=== PATIENT | male | born 1940 | race Caucasian/White ===

== ENCOUNTER → 2023-12-16 07:23 | Outpatient (REF) | payer MEDICARE, OTHER, SELFPAY | LOC: RAD 07:23 | PROVIDERS: ATTENDING PHYSICIAN Nurse Practitioner; FAMILY PHYSICIAN Family Medicine | DX: I48.19 Other persistent atrial fibrillation (principal); Z91.81 History of falling | CPT/HCPCS: 70450 ==

== ENCOUNTER → 2024-03-11 12:18 | Outpatient (REF) | payer MEDICARE, OTHER, SELFPAY ==
[2024-03-11 14:16] LABS: Albumin 4.4 g/dl (3.5-5.0); Blood Urea Nitrogen 16 mg/dl (9-20); Calcium 9.5 mg/dl (8.4-10.2); Carbon Dioxide 24 mmol/L (22-30); Chloride 102 mmol/L (98-107); Glucose 91 mg/dl (70-99); Phosphorus 3.7 mg/dl (2.5-4.5); Potassium 4.2 mmol/L (3.5-5.1); Sodium 137 mmol/L (135-145); eGFR > 60.00
== END ==
LOC: REG 12:18
PROVIDERS: ATTENDING PHYSICIAN Internal Medicine Cardiovascular Disease; FAMILY PHYSICIAN Family Medicine
DX: I48.0 Paroxysmal atrial fibrillation (principal); Z79.01 Long term (current) use of anticoagulants; Z79.899 Other long term (current) drug therapy
CPT/HCPCS: 36415; 80069

== ENCOUNTER 2024-11-20 13:09 | Emergency (ER) | payer MEDICARE, OTHER, SELFPAY ==
[2024-11-20 13:12] VITALS: BP 164/101
--- NOTE | 2024-11-20 15:09 | ED.MUSCINJ ---
HPI-Injury
General
Chief Complaint: Musculo-Skeletal Complaint
Source: patient and family
Exam Limitations: none
Time Seen by Provider: 11/20/24 14:08
Nursing documentation reviewed up to this point in time: agreed with
History of Present Illness-Injury
Is this injury a work related problem?: No
Is pt an associate of [facility]/[place]?: No
Initial Injury comments:
84-year-old male Eliquis prior stroke not diabetic left elbow pain mild trauma no fever chills mild warmth banged it a few days ago,
Past History
Past History
ED Past Medical History: Arrthythmia (Atrial fib), CVA and Other (Tinitis, )
ED Past Surgical History: Cardiac (Mitral valve replaced) and Other (hernia repair, cataracts, )
Social History
Tobacco: Former smoker
Alcohol: Occasional (Wine 2 glasses)
Drug: None
Personal:
Living: alone
Employment: Employed
Review of Systems
Review of Systems
All Other Systems: Not applicable
Constitutional: Denies fever or fatigue
Musculoskeletal: Reports joint pain
Phy Exam
Physical Exam
Physical Exam:
Physical Exam
General: no apparent distress, not acutely ill
Neck: No jaundice
Lungs: no acute respiratory distress.
Neuro: alert and oriented. no focal neurological deficits
Skin: no rash
Psychiatric: well kept. interactive and cooperative
Extremities: Mild redness and warmth of the left olecranon bursa
Injury Course
Orders/Labs/Results
Orders:
Orders
11/20/24 13:16
Elbow, 3 view, Left [CR Elbow - Left Min 3 Views ] Urgent
Comment:
Reason For Exam: swelling
11/20/24 15:01
Acetaminophen [Tylenol] 650 mg PO NOW STA
Doxycycline [Vibramycin] 100 mg PO NOW STA
11/20/24 15:02
Sling Left-Treatment ONCE
MDM/Problems Addressed
Differential Diagnosis Includes:
Olecranon bursitis cellulitis fracture doubt septic joint
MDM/Problems Addressed:
Swollen elbow
Chronic conditions affecting care:
AF anticoagulated prior stroke
Acute Exacerbation and/or Progression of Chronic Illness:
AF anticoagulated prior stroke
*Radiology
Radiology exam reviewed: radiology read reviewed
*Pulse Oximetry
Patient hypoxic: no
*Critical Care Note
Total Time (30-74mins, 75-104mins- exclusive of procedures): Not Applicable
Update Note
Update Note:
Patient nontoxic mildly swollen will start on antibiotics consideration for aspiration of those anticoagulated encouraged to not miss any doses of his anticoagulation had a prior stroke
ED Attending Note
-
Portions of this chart may have been created with voice recognition software.� Occasional wrong word or��sound alike� substitutions may have occurred due to the inherent limitations of voice recognition software.
Discharge Plan
Departure
Patient Disposition: Home (Routine Discharge)
Date of Disposition: 11/20/24
Time of Disposition: 15:02
Patient with high blood pressure during this ER visit?: No
Condition: Good
Discharge Problem:
Bursitis, olecranon
Instructions: Using Cold for Pain, Bursitis ED
Prescriptions:
New
doxycycline hyclate 100 mg capsule
100 mg PO BID Qty: 20 0RF
No Action
multivitamin Tablet
1 tab PO DAILY
cholecalciferol (vitamin D3) [Vitamin D3] 25 mcg (1,000 unit) Tablet
25 mcg PO DAILY
atorvastatin 20 mg Tablet
20 mg PO QPM Qty: 30 0RF
apple cider vinegar 300 mg Tablet
300 mg PO DAILY
acetaminophen 325 mg Tablet
650 mg PO Q4HPRN PRN (Reason: mild pain /fever >100.4 F) Qty: 1 0RF
Eliquis 5 mg Tablet
5 mg PO BID
dofetilide 250 mcg Capsule
250 mcg PO Q12H Qty: 60 3RF
Referrals:
Guillaume Fish MD [Family Provider] -
Abdon Langley MD [Active] - Follow up in 2-3 days
Activity Restrictions/Additional Instructions:
Use ice, Tylenol for pain, doxycycline twice a day return to the ER if worsening symptoms
Interventions
Interventions:
*Risk Screen - Suicide Last Done: 11/20/24 13:12
*Neglect/Abuse Screening Last Done: 11/20/24 13:12
Discharge Date and Time
Print Language: ROMANIAN
[2024-11-20] MEDS: TYLENOL 650 MG PO (15:22)
[2024-11-20] MEDS: VIBRAMYCIN 100 MG PO (15:22)
== END 2024-11-20 15:40 | disposition home or self-care (01) ==
LOC: EMR 13:09
PROVIDERS: EMERGENCY PHYSICIAN Emergency Medicine; FAMILY PHYSICIAN Family Medicine
DX: M70.22 Olecranon bursitis, left elbow (principal); M25.522 Pain in left elbow; X58.XXXA Exposure to other specified factors, initial encounter; I48.91 Unspecified atrial fibrillation; R01.1 Cardiac murmur, unspecified; Z79.01 Long term (current) use of anticoagulants; Z95.2 Presence of prosthetic heart valve; Z87.891 Personal history of nicotine dependence; Z86.73 Personal history of transient ischemic attack (TIA), and cerebral infarction without residual deficits
CPT/HCPCS: 99283; 73080

== ENCOUNTER → 2024-12-07 11:27 | Outpatient (REF) | payer MEDICARE, OTHER, SELFPAY ==
[2024-12-07 12:20] LABS: Hemoglobin 15.1 g/dL (13.0-18.0); Mean Corp Hgb Conc. 34.3 g/dL (33.0-37.0); Mean Corpuscular Hgb 32.2 pg (27.0-31.0); Mean Corpuscular Volume 93.8 fL (80.0-94.0); Mean Platelet Volume 10.3 fL (7.4-10.4); Platelet Count 166 10^3/uL (130-400); Red Blood Cell Count 4.69 10^6/uL (4.70-6.10); Red Cell Dist. Width 12.5 % (11.5-14.5); White Blood Cell Count 8.8 10^3/uL (4.8-10.8)
== END ==
LOC: REG 11:27
PROVIDERS: ATTENDING PHYSICIAN Internal Medicine Cardiovascular Disease
DX: I48.0 Paroxysmal atrial fibrillation (principal); Z79.01 Long term (current) use of anticoagulants
CPT/HCPCS: 36415; 85027

== ENCOUNTER → 2024-12-16 12:48 | Outpatient (REF) | payer MEDICARE, OTHER, SELFPAY | LOC: RCS 12:48 | PROVIDERS: ATTENDING PHYSICIAN Internal Medicine Cardiovascular Disease; FAMILY PHYSICIAN Nurse Practitioner Family | DX: I48.0 Paroxysmal atrial fibrillation (principal) | CPT/HCPCS: 93306 ==

== ENCOUNTER → 2025-02-03 09:55 | Outpatient (REF) | payer MEDICARE, OTHER, SELFPAY ==
[2025-02-03 11:14] LABS: % Basophils 0.9 % (0-2); % Eosinophils 2.1 % (0-6); % Immature Granulocytes 0.4 % (0-0.5); % Monocytes 7.3 % (1.7-9.3); % Neutrophils 62.3 % (42.2-75.2); Absolute Basophils 0.1 10^3/uL (0-0.2); Absolute Eosinophils 0.1 10^3/uL (0-0.7); Absolute Lymphocytes 1.5 10^3/uL (1.2-3.4); Absolute Monocytes 0.4 10^3/uL (0.1-0.6); Absolute Neutrophils 3.5 10^3/uL (1.4-6.5); Hematocrit 43.6 % (39.0-52.0); Hemoglobin 14.7 g/dL (13.0-18.0); Mean Corp Hgb Conc. 33.7 g/dL (33.0-37.0); Mean Corpuscular Hgb 32.2 pg (27.0-31.0); Mean Corpuscular Volume 95.6 fL (80.0-94.0); Mean Platelet Volume 10.4 fL (7.4-10.4); Nucleated Red Blood Cells % 0 % (-); Platelet Count 156 10^3/uL (130-400); Red Blood Cell Count 4.56 10^6/uL (4.70-6.10); Red Cell Dist. Width 13.7 % (11.5-14.5); White Blood Cell Count 5.6 10^3/uL (4.8-10.8)
[2025-02-03 11:49] LABS: ALT (SGPT) 27 U/L (0-50); AST (SGOT) 35 U/L (17-59); Albumin 4.3 g/dl (3.5-5.0); Alkaline Phosphatase 99 U/L (38-126); Blood Urea Nitrogen 13 mg/dl (9-20); Calcium 9.5 mg/dl (8.4-10.2); Carbon Dioxide 31 mmol/L (22-30); Chloride 102 mmol/L (98-107); Glucose 91 mg/dl (70-99); HDL Cholesterol 66 mg/dl; LDL Cholesterol, Calculated 67 mg/dl; Potassium 4.6 mmol/L (3.5-5.1); Sodium 138 mmol/L (135-145); Total Cholesterol 153 mg/dl (50-199); Total Protein 7.1 g/dl (6.3-8.2); Triglyceride 102 mg/dl (10-149); Very Low Density Lipoprotein 20 mg/dl (0-30); eGFR > 60.00
== END ==
LOC: REG 09:55
PROVIDERS: ATTENDING PHYSICIAN Internal Medicine
DX: Z00.00 Encounter for general adult medical examination without abnormal findings (principal); I50.32 Chronic diastolic (congestive) heart failure
CPT/HCPCS: 36415; 80053; 80061; 85025

== ENCOUNTER 2025-10-21 08:01 | Emergency (ER) | payer MEDICARE, OTHER, SELFPAY ==
[2025-10-21 08:03] VITALS: BP 145/101
--- NOTE | 2025-10-21 08:37 | ED.GENMED ---
History of Present Illness
<Ayanna Zhou MD, Resident - Last Filed: 10/21/25 10:43>
General
Chief Complaint: Headache
Source: patient
Time Seen by Provider: 10/21/25 08:17
History of Present Illness
History of Present Illness:
Patient is an 85-year-old male with past medical history significant for hyperlipidemia, unspecified type of atrial fibrillation on chronic anticoagulation with Eliquis, left bundle branch block, HFpEF, prior stroke, prior retroperitoneal hemorrhage
on Xarelto, mitral valve replacement who is here for evaluation of headache on right side of the forehead and moravian area radiating up to the vertex and a feeling of pain behind the right eye as well.
He noticed this headache for 3 days, achy in nature, no associated blurring of vision, decrease in vision, weakness of any side, no aggravating or relieving factors.
He does have some red blotches on forehead but they have been there for a while and they come and go.
Here for evaluation for a stroke given the past medical history and current anticoagulation with Eliquis. Denies any fever, chills, abdominal pain, chest pain, shortness of breath, palpitations or any other issues at this time.
Past History
<Ayanna Zhou MD, Resident - Last Filed: 10/21/25 10:43>
Past History
ED Past Medical History: Arrthythmia (Atrial fib), CVA and Other (Tinitis, )
ED Past Surgical History: Cardiac (Mitral valve replaced) and Other (hernia repair, cataracts, )
Social History
Tobacco: Former smoker
Alcohol: Occasional (Wine 2 glasses)
Drug: None
Personal:
Living: alone
Employment: Employed
Review of Systems
<Ayanna Zhou MD, Resident - Last Filed: 10/21/25 10:43>
Review of Systems
All Other Systems: ROS reviewed and negative except as documented in HPI and ROS
Phy Exam
<Ayanna Zhou MD, Resident - Last Filed: 10/21/25 10:43>
General Physical Exam
General Presentation: well appearing and no apparent distress
Cardiovascular Exam
Cardiovascular Exam: no gallop, no murmur, normal peripheral pulses and irregularly irregular
Pulmonary Exam
Pulmonary Exam: lungs clear and no respiratory distress
Gastrointestinal Exam
Gastrointestinal Exam: normal bowel sounds, non tender and soft
Neurological Exam
Neurological Exam: alert, oriented x3, CN II-XII intact, no motor deficits, no sensory deficits, speech normal and cerebellum intact
Musculoskeletal Exam
Musculoskeletal Exam: full ROM
Course
<Ayanna Zhou MD, Resident - Last Filed: 10/21/25 10:43>
Orders/Labs/Results
Orders:
Orders
10/21/25 08:34
CT Head W/o Iv Contrast Urgent
Comment:
Reason For Exam: Headache,Hx of strokes,on eliquis,a fib
10/21/25 08:35
Electrocardiogram (*1) Urgent
Reason for Study: Atrial Fibrillation
EKG- Treatment ONCE
10/21/25 08:37
Acetaminophen [Tylenol] 1,000 mg PO NOW ONE
10/21/25 08:50
CBC/With Diff [Complete Blood Count/With Diff] Urgent
CMP [Comprehensive Metabolic Panel] Urgent
CRP [C-Reactive Protein] Urgent
ESR [Erythrocyte Sed Rate] Urgent
PT/INR [Prothrombin Time] Urgent
Abnormal Lab Results
10/21/25
08:50
RBC 4.64 L 10^6/uL
(4.70-6.10)
MCH 31.5 H pg
(27.0-31.0)
Lymphocytes % 18.7 L %
(20.5-51.1)
PT 14.7 H Sec
(11.4-14.6)
12/12/25 08:50
10/21/25 08:50
Vital Signs
Initial and Last Documented VS:
Initial Vital Signs
Temp Pulse Resp BP Pulse Ox
97.8 F 96 16 145/101 98
10/21/25 08:03 10/21/25 08:03 10/21/25 08:03 10/21/25 08:03 10/21/25 08:03
Last Documented Vital Signs
Temp Pulse Resp BP Pulse Ox
97.8 F 65 18 148/84 100
10/21/25 08:03 10/21/25 10:31 10/21/25 10:31 10/21/25 10:31 10/21/25 10:31
<Beto Carmona, DO - Last Filed: 10/21/25 10:43>
Orders/Labs/Results
Orders:
Orders
10/21/25 08:34
CT Head W/o Iv Contrast Urgent
Comment:
Reason For Exam: Headache,Hx of strokes,on eliquis,a fib
10/21/25 08:35
Electrocardiogram (*1) Urgent
Reason for Study: Atrial Fibrillation
EKG- Treatment ONCE
10/21/25 08:37
Acetaminophen [Tylenol] 1,000 mg PO NOW ONE
10/21/25 08:50
CBC/With Diff [Complete Blood Count/With Diff] Urgent
CMP [Comprehensive Metabolic Panel] Urgent
CRP [C-Reactive Protein] Urgent
ESR [Erythrocyte Sed Rate] Urgent
PT/INR [Prothrombin Time] Urgent
Abnormal Lab Results
10/21/25
08:50
RBC 4.64 L 10^6/uL
(4.70-6.10)
MCH 31.5 H pg
(27.0-31.0)
Lymphocytes % 18.7 L %
(20.5-51.1)
PT 14.7 H Sec
(11.4-14.6)
10/21/25 08:50
10/21/25 08:50
Vital Signs
Initial and Last Documented VS:
Initial Vital Signs
Temp Pulse Resp BP Pulse Ox
97.8 F 96 16 145/101 98
10/21/25 08:03 10/21/25 08:03 10/21/25 08:03 10/21/25 08:03 10/21/25 08:03
Last Documented Vital Signs
Temp Pulse Resp BP Pulse Ox
97.8 F 65 18 148/84 100
10/21/25 08:03 10/21/25 10:31 10/21/25 10:31 10/21/25 10:31 10/21/25 10:31
<Ayanna Zhou MD, Resident - Last Filed: 10/21/25 10:43>
MDM/Problems Addressed
Differential Diagnosis Includes:
Temporal giant cell arteritis
Shingles
Stroke
Migraines
Acute glaucoma
MDM/Problems Addressed:
Patient's clinical evaluation, less concerning for acute glaucoma, normal extraocular movements without any pain, sclera color normal, no redness, tearing or congestion of eye.
Head CT done, no intracranial bleed
Patient does not have any history of migraines and his pain improved with Tylenol.
CRP level normal
Referral to dermatology provided to follow-up for the rash on forehead, less concerning for shingles as it is not a single dermatomal distribution and has been there for years
Advised the patient to return to the ER for blurred vision, weakness, sensory deficits or any concerning symptoms
Plan to discharge the patient with follow-up with PCP and dermatology
<Ayanna Zhou MD, Resident - Last Filed: 10/21/25 10:43>
*Pulse Oximetry
SaO2: 98
Oxygen Mode of Delivery: Room air
Patient hypoxic: no
*Critical Care Note
Total Time (30-74mins, 75-104mins- exclusive of procedures): Not Applicable
<Beto Carmona DO - Last Filed: 10/21/25 10:43>
Update Note
Update Note:
10:30 AM patient with a reddish rash on his bilateral forehead states he has had this for years, not vesicular, will give him the number for dermatology nonurgently, fairly low clinical suspicion this would be zoster bilaterally chronic
ED Attending Note
<Ayanna Zhou MD, Resident - Last Filed: 10/21/25 10:43>
-
Portions of this chart may have been created with voice recognition software.� Occasional wrong word or��sound alike� substitutions may have occurred due to the inherent limitations of voice recognition software.
<Beto Carmona DO - Last Filed: 10/21/25 10:43>
ED Attending Note
Patient seen and examined by attending physician: Yes
I performed a history and physical exam of patient and discussed management with resident, I reviewed resident's note and agree with documented findings and plan of care.: Yes
ED Attending Note:
Seen with resident examined independently nontoxic elderly male mild frontal headache, history of stroke, pupils round reactive no photophobia
Discharge Plan
Departure
Patient Disposition: Home (Routine Discharge)
Date of Disposition: 10/21/25
Time of Disposition: 10:35
Patient with high blood pressure during this ER visit?: No
Discharge Problem:
Headache
Instructions: Headache, Adult (DC)
Prescriptions:
No Action
multivitamin Tablet
1 tab PO DAILY
cholecalciferol (vitamin D3) [Vitamin D3] 25 mcg (1,000 unit) Tablet
25 mcg PO DAILY
atorvastatin 20 mg Tablet
20 mg PO QPM Qty: 30 0RF
apple cider vinegar 300 mg Tablet
300 mg PO DAILY
acetaminophen 325 mg Tablet
650 mg PO Q4HPRN PRN (Reason: mild pain /fever >100.4 F) Qty: 1 0RF
Eliquis 5 mg Tablet
5 mg PO BID
dofetilide 250 mcg Capsule
250 mcg PO Q12H Qty: 60 3RF
doxycycline hyclate 100 mg capsule
100 mg PO BID Qty: 20 0RF
Referrals:
Demetrius Goddard DO [Family Provider, Internal Medicine]
Lynda Mendoza MD [Consulting Staff, Dermatology] - Next open appointment
Activity Restrictions/Additional Instructions:
USE TYLENOL NEEDED FOR PAIN
FOLLOW UP WITH PCP
FOR RASH ON FOREHEAD FOLLOW UP WITH DERMATOLOGY-REFERRAL PROVIDED
FOR ANY CONCERNING FEATURES,LIKE BLURRED VISION,WEAKNESS OR SENSORY DEFICITS,PLEASE RETURN TO THE ER
Interventions
Interventions:
*Risk Screen - Suicide Last Done: 10/21/25 08:03
*General Assessment Last Done: 10/21/25 08:03
*Neglect/Abuse Screening Last Done: 10/21/25 08:03
ED- Neurological Assessment Last Done: 10/21/25 08:52
Discharge Date and Time
Print Language: PARAGUAYAN
[2025-10-21 08:58] LABS: Hematocrit 43.3 % (39.0-52.0); Hemoglobin 14.6 g/dL (13.0-18.0); Mean Corp Hgb Conc. 33.7 g/dL (33.0-37.0); Mean Corpuscular Volume 93.3 fL (80.0-94.0); Nucleated Red Blood Cells % 0 % (-); Platelet Count 164 10^3/uL (130-400); Red Cell Dist. Width 13.1 % (11.5-14.5)
[2025-10-21] MEDS: TYLENOL 1000 MG PO (09:04)
[2025-10-21 09:12] LABS: INR 1.13; PT 14.7 Sec (11.4-14.6)
[2025-10-21 09:17] LABS: ALT (SGPT) 24 U/L (0-50); AST (SGOT) 31 U/L (17-59); Albumin 4.5 g/dl (3.5-5.0); Alkaline Phosphatase 94 U/L (38-126); Blood Urea Nitrogen 18 mg/dl (9-20); Calcium 9.3 mg/dl (8.4-10.2); Carbon Dioxide 28 mmol/L (22-30); Chloride 104 mmol/L (98-107); Glucose 94 mg/dl (70-99); Potassium 4.5 mmol/L (3.5-5.1); Sodium 138 mmol/L (135-145); Total Protein 7.5 g/dl (6.3-8.2); eGFR > 60.00
[2025-10-21 09:29] LABS: C-Reactive Protein < 5.00 mg/L (0.0-10.00)
[2025-10-21 10:31] VITALS: BP 148/84
== END 2025-10-21 10:49 | disposition home or self-care (01) ==
LOC: EMR 08:01
PROVIDERS: EMERGENCY PHYSICIAN Emergency Medicine; FAMILY PHYSICIAN Internal Medicine
DX: R51.9 Headache, unspecified (principal); I48.91 Unspecified atrial fibrillation; I50.32 Chronic diastolic (congestive) heart failure; E78.5 Hyperlipidemia, unspecified; I44.7 Left bundle-branch block, unspecified; Z79.01 Long term (current) use of anticoagulants; Z86.73 Personal history of transient ischemic attack (TIA), and cerebral infarction without residual deficits; Z95.2 Presence of prosthetic heart valve; Z87.891 Personal history of nicotine dependence
CPT/HCPCS: 99284; 70450; 80053; 85025; 85610; 85652; 86140; 93005